=== PATIENT | male | born 1970 | race Caucasian/White ===

== ENCOUNTER 2019-01-30 14:35 | Emergency (ER) | payer OTHER ==
[2019-01-30 14:42] VITALS: RESP 18; TEMP 98.5; O2SAT 97
[2019-01-30] MEDS ORDERED: Sodium Chloride 0.9% 1,000 ML IV ONE (15:18)
--- NOTE | 2019-01-30 15:26 | C.PDOC ---
History Of Present Illness PGY-[address] Rahman Patient is 48 year old male with pmhx of Hep C, heroin abuse on methadone program, present to the ED with left upper abdominal pain that has been worsening since one week ago, states patient has been having on and off sharp pain for the past year. Patient states pain is non radiating, 4/10. Admits to s ome nausea, but no vomiting, admits to acid reflux and feeling as if something is stuck in his throat, associated with trouble swallowing foods and liquids. Admits to waking up coughing at nights. Denies fever, chills, chest pain, sob, nausea, vomiting, diarrhea, constipation, hematochezia, melena or urinary symptoms. <Michael Parra - Last Filed: 01/30/19 16:34> Patient seen and examined. Agree with above history. <Anna Rahman - Last Filed: 01/30/19 16:51> History Per: Patient History/Exam Limitations: no limitations Onset/Duration Of Symptoms: Days Current Symptoms Are (Timing): Still Present Severity: Mild Pain Scale Rating Of: 4 Location Of Pain/Discomfort: LUQ Radiation Of Pain To:: None Quality Of Discomfort: Sharp Associated Symptoms: Nausea, Loss Of Appetite. denies: Fever, Chills, Vomiting, Diarrhea, Back Pain, Chest Pain, Constipation, Urinary Symptoms Exacerbating Factors: None Alleviating Factors: None Last Bowel Movement: Yesterday <Michael Parra - Last Filed: 01/30/19 16:34> <Anna Rahman - Last Filed: 01/30/19 16:51> Time Seen by Provider: 01/30/19 14:51 Chief Complaint (Nursing): Abdominal Pain Past Medical History Vital Signs: Last Vital Signs Temp 98.5 F 01/30/19 14:37 Pulse 70 01/30/19 14:37 Resp 18 01/30/19 14:37 BP 145/89 01/30/19 14:37 Pulse Ox 97 01/30/19 14:37 Primary Care Provider: FAMILY PROVIDER,NO - Medical History PMH: Hepatitis (Hep C ) Other PMH: heroin use disorder Surgical History: No Surg Hx Family History: States: No Known Family Hx - Social History Hx Tobacco Use: Yes (10 cigarettes/day ) Hx Alcohol Use: No Hx Substance Use: No - Immunization History Hx Tetanus Toxoid Vaccination: No Hx Influenza Vaccination: No Hx Pneumococcal Vaccination: No <Michael Parra - Last Filed: 01/30/19 16:34> Vital Signs: Last Vital Signs Temp 98.5 F 01/30/19 14:37 Pulse 70 01/30/19 14:37 Resp 18 01/30/19 14:37 BP 145/89 01/30/19 14:37 Pulse Ox 97 01/30/19 16:38 <Anna Rahman - Last Filed: 01/30/19 16:51> Review Of Systems Constitutional: Negative for: Fever, Chills, Sweats, Weakness Cardiovascular: Negative for: Chest Pain, Palpitations Respiratory: Negative for: Shortness of Breath Gastrointestinal: Positive for: Nausea. Negative for: Vomiting, Abdominal Pain, Diarrhea, Constipation, Melena, Hematochezia, Hematemesis Genitourinary: Positive for: Frequency. Negative for: Dysuria, Incontinence, H ematuria Musculoskeletal: Negative for: Shoulder Pain, Back Pain Skin: Negative for: Rash Neurological: Negative for: Weakness, Numbness, Incoordination, Change in Speech Psych: Negative for: Anxiety, Depression <Michael Parra - Last Filed: 01/30/19 16:34> Physical Exam - Physical Exam Appears: Non-toxic, No Acute Distress Skin: Normal Color, Other (multiples tattoes in arms , abdomen and back ) Head: Atraumatic, Normacephalic Eye(s): bilateral: Normal Inspection, EOMI Oral Mucosa: Moist Tongue: Normal Appearing Throat: Normal, No Erythema, No Exudate Neck: Normal, Normal ROM Cardiovascular: Rhythm Regular Respiratory: Normal Breath Sounds, No Wheezing Gastrointestinal/Abdominal: Normal Exam, Bowel Sounds, Soft, No Tenderness, No Organomegaly, No Distention, No Guarding Back: No Normal Inspection, No CVA Tenderness, No Vertebral Tenderness, No Paraspinal Tenderness Extremity: Normal ROM, No Swelling Neurological/Psych: Oriented x3, Normal Speech, Normal Cognition, Normal Cranial Nerves, Normal Motor, Normal Sensation <Michael Parra - Last Filed: 01/30/19 16:34> ED Course And Treatment - Laboratory Results Result Diagrams: 01/30/19 15:30 01/30/19 15:30 O2 Sat by Pulse Oximetry: 97 <Michael Parra - Last Filed: 01/30/19 16:34> - Laboratory Results Result Diagrams: 01/30/19 15:30 01/30/19 15:30 Lab Results: Total Bilirubin 0.9 mg/dL (0.2-1.3) 01/30/19 15:30 AST 68 U/L (17-59) H 01/30/19 15:30 ALT 55 U/L (21-72) 01/30/19 15:30 Alkaline Phosphatase 85 U/L (38-126) 01/30/19 15:30 Total Protein 7.7 g/dL (6.3-8.3) 01/30/19 15: Albumin 4.0 g/dL (3.5-5.0) 01/30/19 15:30 Globulin 3.7 gm/dL (2.2-3.9) 01/30/19 15:30 Albumin/Globulin Ratio 1.1 (1.0-2.1) 01/30/19 15:30 Lipase 43 U/L (23-300) 01/30/19 15:30 Urine Color Yellow (YELLOW) 01/30/19 16:12 Urine Clarity Hazy (Clear) 01/30/19 16:12 Urine pH 5.0 (5.0-8.0) 01/30/19 16:12 Ur Specific [place] 1.030 (1.003-1.030) 01/30/19 16:12 Urine Protein Negative mg/dL (NEGATIVE) 01/30/19 16:12 Urine Glucose (UA) Normal mg/dL (Normal) 01/30/19 16:12 Urine Ketones Negative mg/dL (NEGATIVE) 01/30/19 16:12 Urine Blood Negative (NEGATIVE) 01/30/19 16:12 Urine Nitrate Negative (NEGATIVE) 01/30/19 16:12 Urine Bilirubin Negative (NEGATIVE) 01/30/19 16:12 Urine Urobilinogen 4.0 mg/dL (0.2-1.0) 01/30/19 16:12 Ur Leukocyte Esterase Neg Ese/uL (Negative) 01/30/19 16:12 Urine WBC (Auto) < 1 /hpf (0-5) 01/30/19 16:12 Urine RBC (Auto) 1 /hpf (0-3) 01/30/19 16:12 Lab Interpretation: No Acute Changes Reevaluation Time: 16:49 Reassessment Condition: Improved (Better after IV fluids and Protonix. Abdomen soft and nontender.) <Anna Rahman - Last Filed: 01/30/19 16:51> Medical Decision Making Medical Decision Makin48 year old male complaining of left upper quadrant sharp pain, acid reflux, no tenderness on palpation, symptoms most likely to GERD/gastritis - Lab ordered -CBC, CMP, lipase - U/A - 1L NS bolus - Protonix 40mg IVP x 1 16:34 - Blood work negative, lipase wnl, U/A unremarkable. Plan d/w Dr Lacey Parra, PGY-1 <Michael Parra - Last Filed: 01/30/19 16:34> Disposition <Michael Parra - Last Filed: 01/30/19 16:34> Counseled Patient/Family Regarding: Studies Performed, Diagnosis, Need For Followup, Rx Given - Disposition Disposition Time: 16:50 <Anna Rahman - Last Filed: 01/30/19 16:51> - Disposition Referrals: [facility] [Outside] Disposition: HOME/ ROUTINE Condition: IMPROVED Prescriptions: Pantoprazole [Protonix] 40 mg PO DAILY #14 ect Instructions: Acid Reflux (Gastroesophageal Reflux Disease), Adult (DC), Ulcer and Gastritis Diet Forms: [employer] (Danish) - Clinical Impression Clinical Impression: GERD (gastroesophageal reflux disease)
[2019-01-30] MEDS ORDERED: Sodium Chloride 0.9% 1,000 ML ONE (15:32)
[2019-01-30 15:38] LABS: BASO % 0.5 % (0.0-2.0); EOS # 0.3 K/uL (0.0-0.7); HEMOGLOBIN 14.8 g/dL (12.0-18.0); LYMPH # 2.6 K/uL (1.0-4.3); LYMPH % 35.7 % (20.0-40.0); MEAN CELL VOLUME 85.6 fL (80.0-94.0); MEAN CORPUSCULAR HEMOGLOBIN 30.3 pg (27.0-31.0); MEAN CORPUSCULAR HGB CONC 35.4 g/dL (33.0-37.0); MEAN PLATELET VOLUME 8.5 fL (7.2-11.7); MONO # 0.6 K/uL (0.0-0.8); MONO % 8.3 % (0.0-10.0); NEUT # 3.8 K/uL (1.8-7.0); NEUT % 51.5 % (50.0-75.0); RBC 4.89 Mil/uL (4.40-5.90); RED CELL DISTRIBUTION WIDTH 13.3 % (11.5-14.5); WHITE BLOOD COUNT 7.3 K/uL (4.8-10.8)
[2019-01-30 15:49] LABS: ALB/GLOB RATIO 1.1 (1.0-2.1); ALT/SGPT 55 U/L (21-72); AST/SGOT 68 U/L (17-59); BLOOD UREA NITROGEN 9 mg/dL (9-20); CALCIUM 9.3 mg/dl (8.6-10.4); GFR NON-AFRICAN AMERICAN > 60; LIPASE 43 U/L (23-300)
[2019-01-30 16:19] LABS: URINE BILIRUBIN NEGATIVE (NEGATIVE); URINE BLOOD NEGATIVE (NEGATIVE); URINE CLARITY Hazy (Clear); URINE GLUCOSE (UA) NORMAL (Normal); URINE LEUKOCYTE ESTERASE NEG Leu/uL (Negative); URINE PROTEIN NEGATIVE (NEGATIVE)
[2019-01-30 16:32] LABS: URINE COLOR YELLOW (YELLOW)
[2019-01-30 16:59] VITALS: BP 137/73; PULSE 58
== END 2019-01-30 16:59 | disposition home or self-care (01) ==
LOC: C.ER 14:35
DX: K21.9 Gastro-esophageal reflux disease without esophagitis (principal)
CPT/HCPCS: 80053; 81001; 83690; 85025; 96361; 96374; 99283; C9113; J7030